=== PATIENT | male | born 2000 | race Caucasian/White ===

== ENCOUNTER 2022-01-30 16:14 | Emergency (ER) | payer BC, OTHER, SELFPAY ==
[2022-01-30 16:22] VITALS: BP 138/72; PULSE 97; RESP 18; TEMP 37.1; O2SAT 99
--- NOTE | 2022-01-30 16:35 | ED.EYEPROB ---
HPI - Eye Problem General Chief complaint: Eye Problems Stated complaint: Red under right eye Time Seen by Provider: 01/30/22 16:25 Source: patient Mode of arrival: ambulatory Limitations: no limitations History of Present Illness HPI Narrative: Mr. Crisostomo is a 21-year-old male patient presenting to the clinic today with complaints of redness under the right eye that began this morning. He reports that he was trying to pass some stool this morning and afterwards noticed some bleeding under his right eye. He denies any injury to his eye Review of Systems Review of Systems: Pertinent positives per HPI. Patient denies any fever, chills, rash, headache, visual changes, dizziness, cough, runny nose, sore throat, shortness of breath, chest pain, palpitations, nausea, vomiting, diarrhea, constipation, abdominal pain, or any urinary issues. PMFSH Comments At the time of my signature, I reviewed and agree with the nursing past medical, surgical, social, and family history. There is no relevant family history pertinent to the patient complaint. Exam Narrative: General: Well-developed, well nourished, in no apparent distress Head: Normocephalic, atraumatic Eyes: Pupils equally round and reactive to light bilaterally, EOM intact, left sclera and conjunctive clear, subconjunctival hematoma to the right sclera and conjunctiva, no discharge, lids normal, Ears: TMs intact and clear, ear canals clear, no drainage, grossly hearing normal. Nose: Nares patent, no discharge, no inflammation, no sinus tenderness. Mouth: Oropharynx without lesions or masses, good dentition, MMM. Neck: Supple, trachea midline, no enlargement of anterior or posterior cervical nodes, no thyroid masses or goiter palpable. Cardio: Regular rate and rhythm, s1 and s2 normal, no murmur appreciated. Resp: Clear to auscultation bilaterally anteriorly and posteriorly, no rhonchi, rales, wheezing or rubs Course Course Emergency Course: Portions of this record may have been created with voice recognition software. Level of Care: Express Care Visit Vital Signs Vital signs: Vital Signs Temperature 37.1 C 01/30/22 16:22 Pulse Rate 97 01/30/22 16:22 Respiratory Rate 18 01/30/22 16:22 Blood Pressure 138/72 01/30/22 16:22 Pulse Oximetry 99 01/30/22 16:22 Oxygen Delivery Room Air 01/30/22 16:22 Temperature 37.1 C 01/30/22 16:22 Pulse Rate 97 01/30/22 16:22 Respiratory Rate 18 01/30/22 16:22 Blood Pressure 138/72 01/30/22 16:22 Pulse Oximetry 99 01/30/22 16:22 Oxygen Delivery Room Air 01/30/22 16:22 Vital signs reviewed MDM - Eye Problem MDM Narrative Medical decision making narrative: At the time of visit patient is resting comfortably on the exam table. I suspect the patient has a subconjunctival hemorrhage. Discussed supportive measures and patient voiced understanding of discharge instructions and agrees to treatment plan. Differential Diagnosis Differential diagnosis: Likely corneal abrasion, conjunctivitis, acute iritis, subconjunctival hemorrhage, corneal ulcer and ruptured globe Discharge Plan Discharge Clinical Impression: Subconjunctival hemorrhage Patient Disposition: Home, Self-Care Condition: Stable Instructions: Antibiotic Form, Subconjunctival Hemorrhage (ED) Additional Instructions: No eyedrops necessary at this time. Recommend follow-up with loom changer/service center manager if symptoms worsen or the blood gets in your field of vision Follow-up with your PCP as needed Follow-up/Referrals: Peewee,LYLE Akbar [Primary Care Provider] - Time of Disposition: 16:40 Quality NIHSS Nursing Documentation ED NIHSS nursing documentation: reviewed/agree
== END 2022-01-30 16:45 | disposition home or self-care (01) ==
PROVIDERS: Emergency Provider Nurse Practitioner Family; PCP Physician Assistant
DX: H11.31 Conjunctival hemorrhage, right eye (principal)
CPT/HCPCS: 99212; G0463